=== PATIENT | male | born 1975 | race Caucasian/White ===

== ENCOUNTER 2017-12-12 10:00 | Emergency (ER) | payer MEDICAID, OTHER ==
[2017-12-12] MEDS ORDERED: HYDROmorphONE/DILAUDID 1 MG/ML INJ IVP ONE (10:18)
[2017-12-12] MEDS ORDERED: ONDANSETRON 4 MG/2 ML VIAL ONE (10:22)
[2017-12-12] MEDS ORDERED: ONDANSETRON 4 MG/2 ML VIAL IVP ONE (10:25)
[2017-12-12] MEDS ORDERED: NS 1,000 ML IV ONE (10:26)
--- NOTE | 2017-12-12 12:13 | EDPHY ---
H & P Time Seen by Provider: 12/12/17 10:12 HPI/ROS: CHIEF COMPLAINT: Facial laceration HISTORY OF PRESENT ILLNESS: 42-year-old male presents to the emergency department with facial laceration. The patient was at work when a piece of HVAC equipment fell and hit him in the face. The incident happened just prior to arrival. He did not lose consciousness. He is unable to breathe out of the right side of his nose. No headache. No neck or back pain. No chest pain or difficulty breathing. He thinks his tetanus shot is current. REVIEW OF SYSTEMS: Constitutional: No fever, no chills. Eyes: No double or blurry vision. ENT: No sore throat. Respiratory: No cough, no shortness of breath. Cardiac: No chest pain. Gastrointestinal: No abdominal pain, vomiting or diarrhea. Genitourinary: No dysuria. Musculoskeletal: No neck or back pain. Skin: Facial laceration. No rashes. Neurological: No headache. Past Medical/Surgical History: Orthopedic injury Social History: Single and lives in [place] Smoking Status: Never smoked Physical Exam: General Appearance: Alert, no distress. Mentating normally and answering questions appropriately. Eyes: Pupils equal and round. Extraocular motions are all intact. ENT: Mouth: Mucous membranes moist. Large 4 cm laceration extends across the distal 3rd of his nose extending into the left nostril. There is bony fragment exposed. He has some mild tenderness with palpation to bilateral maxillary sinuses. No dental injury or malocclusion noted. Respiratory: No wheezing, rhonchi, or rales, lungs are clear to auscultation. Cardiovascular: Regular rate and rhythm. Gastrointestinal: Abdomen is soft and nontender, no masses, no rebound or guarding, bowel sounds normal. Neurological: Alert and oriented x 3, cranial nerves II through XII grossly intact Skin: Complex facial laceration as noted above. Warm and dry, no rashes. Musculoskeletal: Nontender to palpate along the cervical, thoracic or lumbar spine. Neck is supple. Extremities: Full range of motion and no peripheral edema. Psychiatric: Patient is oriented X 3, there is no agitation. Constitutional: Initial Vital Signs Temperature (C) 36.7 C 12/12/17 10:06 Heart Rate 98 12/12/17 10:06 Respiratory Rate 18 12/12/17 10:06 Blood Pressure 155/101 H 12/12/17 10:06 O2 Sat (%) 97 12/12/17 10:06 O2 Delivery Mode Room Air Allergies/Adverse Reactions: Penicillins Allergy (Verified 12/12/17 10:05) Home Medications: Medication Instructions Recorded Cephalexin [Keflex] 500 mg PO QID #28 cap 12/12/17 oxyCODONE/APAP 5/325 [Percocet 1 - 2 tab PO Q4-6PRN PRN #15 tab 12/12/17 5/325] Medical Decision Making - Diagnostics Imaging Results: Imaging Impressions Face CT 12/12/17 10:18 Impression: 1. Nondisplaced anterior nasal spine fracture with extensive soft tissue irregularity over the nose. 2. Congenital spinal canal narrowing. Findings discussed with MARYURI NEWMAN 12/12/2017 at 11:03. Imaging: Discussed imaging studies w/ train caller Radiologist ED Course/Re-evaluation: 42-year-old male presents to the emergency department with complex facial laceration. CT imaging reveals anterior nasal spine fracture without any other facial fractures noted. The case was discussed with Dr. Ja Fang, secondary supervising physician, who did not directly evaluate the patient but agrees with treatment and plan. He agrees with plastic surgery consultation. I spoke with Dr. Barry Restrepo, on-call plastic surgeon, who came to evaluate the patient and repaired the laceration. He was given 1 g of Ancef IV as well as IV Dilaudid for pain. He will be sent home on oral Keflex oral Percocet and will follow up with Dr. Restrepo in 2 days for wound recheck. Differential Diagnosis: Including but not limited to facial fractures, head injury, retained foreign body - Data Points Medications Given: Discontinued Medications Hydromorphone HCl (Dilaudid) 0.5 mg IVP EDNOW ONE Stop: 12/12/17 10:19 Last Admin: 12/12/17 10:27 Dose: 0.5 mg Sodium Chloride (Ns) 1,000 mls @ 0 mls/hr IV ONCE ONE PRN Reason: Wide Open Stop: 12/12/17 10:27 Last Admin: 12/12/17 10:26 Dose: 1,000 mls Cefazolin Sodium/Dextrose (Ancef 1 Gm (Premix)) 50 mls @ 200 mls/hr IV EDNOW ONE PRN Reason: Protocol Stop: 12/12/17 11:21 Last Admin: 12/12/17 11:24 Dose: 50 mls Ondansetron HCl (Zofran) 4 mg IVP EDNOW ONE Stop: 12/12/17 10:26 Last Admin: 12/12/17 10:26 Dose: 4 mg Departure - Departure Disposition: Home, Routine, Self-Care Clinical Impression: Nasal bone fracture Qualifiers: Encounter type: initial encounter Fracture type: open Qualified Code(s): S02.2XXB - Fracture of nasal bones, initial encounter for open fracture Condition: Good Instructions: Nasal Fracture (ED), Laceration (ED), Acute Wounds (ED) Additional Instructions: Keflex as directed for 1 week to prevent infection. Follow up with Dr. Restrepo as directed. Referrals: Monika Simpson MD [Medical Doctor] - As per Instructions (ENT on-call) Barry Restrepo MD [Medical Doctor] - 1-2 days without fail (Call to arrange follow-up appointment to be seen on Sunday by Dr. Restrepo.) Prescriptions: Cephalexin [Keflex] 500 mg PO QID #28 cap oxyCODONE/APAP 5/325 [Percocet 5/325] 1 - 2 tab PO Q4-6PRN PRN #15 tab PRN Reason: For Moderate To Severe Pain
[2017-12-12 13:14] VITALS: BP 145/79
--- NOTE | 2017-12-12 13:33 | GCON ---
[f rep st] CONSULTATION DATE OF CONSULTATION: 12/12/2017 CHIEF COMPLAINT: Laceration of the nose. 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 He sustained a significant laceration with a lot of bleeding. He did not lose consciousness. PAST MEDICAL HISTORY: Generally unremarkable. MEDICATIONS: He is on no medications. ALLERGIES: He has an allergy to penicillin. Tetanus status is up to date. PHYSICAL EXAMINATION: He had a subtotal amputation of the tip of the nose going through the tip and down into both nostrils. On the right side, it came right down to the lateral alar rim and at the level of the septum. It was behind the alar cartilages, but in front of the septal cartilage and came right down onto the anterior nasal spine. On the left alar rim, it went through-and- through at just between the border of the soft triangle on the lateral part of the alar rim and down at the base continued through the base of the nose and out laterally below the alar rim on the upper part of the lip. The laceration was sharply obtained and quite clean. There are just minimal amounts of questionably viable tissue at some of the places where it was a little more skiving. TREATMENT RENDERED: The wound was infiltrated with lidocaine with epinephrine. Irrigation and washout were carried out with moist saline 4x4s. No significant contamination was encountered. Closure was carried out in layers with 5-0 chromic being used internally on the septum and nostril lining. 5-0 Vicryl was used on the alar cartilages. Finally, 6-0 Prolene was used on the skin of the lip and the external part of the nose. Total length of closure probably about 15 cm, including the internal and external repairs. The wound was dressed with bacitracin ointment. The patient was given a gram of Ancef in the ER with appropriate monitoring due to the possible history of penicillin allergy. DISCHARGE PLAN AND FOLLOWUP: A prescription will be written for pain killers and for Keflex. I have instructed on wound care, which will simply include topical bacitracin ointment 3 to 4 times a day in order to keep the sutures moist. I will plan to see him in my office in 2 days' time to make sure healing is coming along okay. /[id number]/MODL MTDD
== END 2017-12-12 13:21 | disposition home or self-care (01) ==
PROC: 09QKXZZ Repair Nasal Mucosa and Soft Tissue, External Approach (ICD-10-PCS; principal; 2017-12-12)
DX: S02.2XXB Fracture of nasal bones, initial encounter for open fracture (principal); S08.812A Partial traumatic amputation of nose, initial encounter; W20.8XXA Other cause of strike by thrown, projected or falling object, initial encounter; Y92.9 Unspecified place or not applicable; Y99.0 Civilian activity done for income or pay; Q76.49 Other congenital malformations of spine, not associated with scoliosis; Z88.0 Allergy status to penicillin
CPT/HCPCS: 96374; J0690; J1170; J2405